=== PATIENT | male | born 1980 | race Caucasian/White ===

== ENCOUNTER 2024-06-28 11:36 | Inpatient (IN) | payer BC, OTHER ==
[2024-06-28] MEDS: Sodium Chloride 0.9% 10 ML Syringe FLUSH PRN (12:03)
[2024-06-28] MEDS: HYDROmorphone 1 MG/ML Syringe IVPUSH ONE (12:03)
[2024-06-28 12:04] LABS: BASOPHILS ABSOLUTE AUTO 0.1 K/mm3 (0.0-0.2); BASOPHILS PERCENT AUTO 0.9 % (0.0-1.0); EOSINOPHILS ABSOLUTE AUTO 0.2 K/mm3 (0.0-0.4); EOSINOPHILS PERCENT AUTO 2.3 % (0.0-6.0); HEMOGLOBIN 16.1 gm/dl (14.0-18.0); IMMATURE GRAN ABSOLUTE AUTO 0.04 K/mm3 (0.00-0.05); IMMATURE GRAN PERCENT AUTO 0.5 % (0.0-0.4); LYMPHOCYTES ABSOLUTE AUTO 1.6 K/mm3 (1.0-4.8); LYMPHOCYTES PERCENT AUTO 20.7 % (24.0-44.0); MEAN CORPUSCULAR HEMOGLOBIN 29.9 pg (28.0-32.0); MEAN CORPUSCULAR HGB CONC 34.3 g/dl (32.0-36.0); MEAN CORPUSCULAR VOLUME 87.2 fl (83.0-99.0); MONOCYTES ABSOLUTE AUTO 0.4 K/mm3 (0.0-0.8); MONOCYTES PERCENT AUTO 5.3 % (0.0-8.0); NEUTROPHILS ABSOLUTE AUTO 5.6 K/mm3 (1.8-7.7); NEUTROPHILS PERCENT AUTO 70.3 % (41.0-71.0); PLATELET COUNT,PLT 284 K/mm3 (150-400); RED BLOOD CELL COUNT 5.39 M/mm3 (4.52-5.90); WHITE BLOOD CELL COUNT,WBC 7.93 K/mm3 (3.9-11.3)
[2024-06-28 12:25] LABS: A/G RATIO 1.1 (1-2); ALANINE AMINOTRANSFERASE,ALT 28 U/L (16-63); ALKALINE PHOSPHATASE 61 U/L (46-116); ANION GAP 14.8 (5-15); ASPARTATE AMNIOTRANSFERASE,AST 14 U/L (15-37); BILIRUBIN TOTAL 0.5 mg/dL (0.2-1.0); BLOOD UREA NITROGEN,BUN 17 mg/dL (7-18); BUN/CREATININE RATIO 13.1 (14-18); CALCIUM 9.3 mg/dL (8.5-10.1); CARBON DIOXIDE,CO2 25 mEq/L (21-32); CHLORIDE,CL 105 mEq/L (98-107); CREATININE 1.3 mg/dL (0.7-1.3); ESTIMATED GFR 69 mL/min (>60); GLUCOSE RANDOM 112 mg/dL (70-99); POTASSIUM,K 3.8 mEq/L (3.5-5.1); PROTEIN TOTAL,TP 7.5 g/dl (6.4-8.2); SODIUM,NA 141 mEq/L (136-145)
[2024-06-28] MEDS: Diphtheria,Pertussis(Acell),Tetanus Vaccine 0.5 ML Syringe IM ONE (14:20)
[2024-06-28] MEDS ORDERED: Melatonin 3 MG Tab PO PRN (14:26)
[2024-06-28] MEDS ORDERED: Ondansetron 4 MG Tab.DIS PO PRN (14:26)
[2024-06-28] MEDS: Acetaminophen 325 MG Tab PO SCH (14:46)
[2024-06-28 15:01] LABS: INR 0.96; PROTHROMBIN TIME 10.2 SECONDS (9.7-12.0)
[2024-06-28 15:02] LABS: PTT,PARTIAL THROMBOPLSTIN TIME 21.9 SECONDS (21.7-31.4)
[2024-06-28] MEDS: oxyCODONE 5 MG Tab PO PRN (18:09)
[2024-06-28] MEDS: FLUTICASONE INH ONE (21:41)
[2024-06-28] MEDS: VILANTEROL INH ONE (21:41)
[2024-06-28] MEDS ORDERED: fentaNYL 250 MCG/5 ML SDV ONE (23:24)
[2024-06-28] MEDS ORDERED: Succinylcholine 200 MG/10 ML MDV ONE (23:24)
[2024-06-28] MEDS ORDERED: Midazolam 1 MG/ML 2 ML SDV ONE (23:24)
[2024-06-28] MEDS ORDERED: Propofol 200 MG/20 ML SDV ONE (23:24)
[2024-06-28] MEDS ORDERED: Ondansetron 4 MG/2 ML SDV ONE (23:24)
[2024-06-29] MEDS: Pantoprazole 40 MG Tab.CR PO SCH (05:55)
[2024-06-29] MEDS ORDERED: Pantoprazole 40 MG Tab.CR PO SCH (07:00)
[2024-06-29] MEDS: Enoxaparin 40 MG/0.4 ML Syringe SUBCUT SCH (08:20)
[2024-06-30 06:11] LABS: BASOPHILS ABSOLUTE AUTO 0.1 K/mm3 (0.0-0.2); BASOPHILS PERCENT AUTO 0.6 % (0.0-1.0); EOSINOPHILS ABSOLUTE AUTO 0.2 K/mm3 (0.0-0.4); EOSINOPHILS PERCENT AUTO 2.5 % (0.0-6.0); HEMATOCRIT 43.9 % (42.0-52.0); HEMOGLOBIN 15.1 gm/dl (14.0-18.0); IMMATURE GRAN ABSOLUTE AUTO 0.03 K/mm3 (0.00-0.05); IMMATURE GRAN PERCENT AUTO 0.3 % (0.0-0.4); LYMPHOCYTES ABSOLUTE AUTO 1.5 K/mm3 (1.0-4.8); LYMPHOCYTES PERCENT AUTO 15.8 % (24.0-44.0); MEAN CORPUSCULAR HEMOGLOBIN 29.7 pg (28.0-32.0); MEAN CORPUSCULAR HGB CONC 34.4 g/dl (32.0-36.0); MEAN CORPUSCULAR VOLUME 86.2 fl (83.0-99.0); MEAN PLATELET VOLUME 8.9 fl (9.4-12.4); MONOCYTES ABSOLUTE AUTO 0.8 K/mm3 (0.0-0.8); MONOCYTES PERCENT AUTO 8.4 % (0.0-8.0); NEUTROPHILS ABSOLUTE AUTO 6.8 K/mm3 (1.8-7.7); NEUTROPHILS PERCENT AUTO 72.4 % (41.0-71.0); PLATELET COUNT,PLT 230 K/mm3 (150-400); RED BLOOD CELL COUNT 5.09 M/mm3 (4.52-5.90); WHITE BLOOD CELL COUNT,WBC 9.43 K/mm3 (3.9-11.3)
[2024-06-30 06:52] LABS: BUN/CREATININE RATIO 9.1 (14-18); CALCIUM 9.1 mg/dL (8.5-10.1); CREATININE 1.1 mg/dL (0.7-1.3); EST CRCL DRUG DOSING (CG) 86.64 mL/min
[2024-06-30] MEDS: Docusate Sodium 100 MG Cap PO SCH (09:58)
[2024-06-30] MEDS ORDERED: Propofol 200 MG/20 ML SDV ONE ×3 (11:51→14:10)
[2024-06-30] MEDS ORDERED: Midazolam 1 MG/ML 2 ML SDV ONE (11:52)
[2024-06-30] MEDS ORDERED: fentaNYL 100 MCG/2 ML SDV ONE (11:53)
[2024-06-30] MEDS ORDERED: Ondansetron 4 MG/2 ML SDV ONE (12:01)
[2024-06-30] MEDS ORDERED: ceFAZolin 2 GM Vial ONE (13:00)
[2024-06-30] MEDS ORDERED: Lactated Ringers 1,000 ML ONE ×2 (13:11)
[2024-06-30] MEDS ORDERED: ePHEDrine 50 MG/ML SDV ONE (14:12)
[2024-06-30] MEDS: Morphine 8 MG, EPINEPHrine 0.3 MG, Cefuroxime 750 MG, Ketorolac 30 MG, Sodium Chloride ... PRN (14:34)
[2024-06-30] MEDS: Tranexamic Acid 1,000 MG/10 ML Vial ONE (14:40)
[2024-06-30] MEDS: Vancomycin 1 GM SDV ONE (14:40)
[2024-06-30] MEDS ORDERED: HYDROmorphone 0.5 MG/0.5 ML Syringe IVPUSH PRN (15:06)
[2024-06-30] MEDS ORDERED: Ondansetron 4 MG/2 ML SDV IVPUSH PRN (15:06)
[2024-06-30] MEDS ORDERED: fentaNYL 100 MCG/2 ML SDV IVPUSH PRN (15:06)
[2024-06-30] MEDS: oxyCODONE 5 MG Tab PO PRN (19:41)
[2024-06-30] MEDS: HYDROmorphone 0.5 MG/0.5 ML Syringe IVPUSH PRN (21:54)
[2024-07-01] MEDS: Acetaminophen 325 MG Tab PO PRN (02:17)
[2024-07-01] MEDS: Enoxaparin 40 MG/0.4 ML Syringe SUBCUT SCH (08:06)
[2024-07-01] MEDS: Lactated Ringers 1,000 ML IV ONE (08:29)
[2024-07-01 09:06] LABS: BASOPHILS ABSOLUTE AUTO 0.1 K/mm3 (0.0-0.2); BASOPHILS PERCENT AUTO 0.6 % (0.0-1.0); EOSINOPHILS ABSOLUTE AUTO 0.2 K/mm3 (0.0-0.4); EOSINOPHILS PERCENT AUTO 1.8 % (0.0-6.0); HEMATOCRIT 40.7 % (42.0-52.0); HEMOGLOBIN 13.9 gm/dl (14.0-18.0); IMMATURE GRAN ABSOLUTE AUTO 0.04 K/mm3 (0.00-0.05); IMMATURE GRAN PERCENT AUTO 0.4 % (0.0-0.4); LYMPHOCYTES ABSOLUTE AUTO 1.6 K/mm3 (1.0-4.8); LYMPHOCYTES PERCENT AUTO 15.1 % (24.0-44.0); MEAN CORPUSCULAR HGB CONC 34.2 g/dl (32.0-36.0); MEAN CORPUSCULAR VOLUME 87.7 fl (83.0-99.0); MEAN PLATELET VOLUME 9.3 fl (9.4-12.4); MONOCYTES PERCENT AUTO 9.1 % (0.0-8.0); PLATELET COUNT,PLT 229 K/mm3 (150-400); RED BLOOD CELL COUNT 4.64 M/mm3 (4.52-5.90); WHITE BLOOD CELL COUNT,WBC 10.89 K/mm3 (3.9-11.3)
[2024-07-01 09:34] LABS: A/G RATIO 0.8 (1-2); ALBUMIN 3.2 g/dl (3.4-5.0); ANION GAP 15.9 (5-15); BILIRUBIN TOTAL 1.3 mg/dL (0.2-1.0); BUN/CREATININE RATIO 10.9 (14-18); CALCIUM 8.8 mg/dL (8.5-10.1); CREATININE 1.1 mg/dL (0.7-1.3); EST CRCL DRUG DOSING (CG) 86.64 mL/min; MAGNESIUM 1.9 mg/dL (1.8-2.4); POTASSIUM,K 3.9 mEq/L (3.5-5.1)
[2024-07-02 04:46] LABS: BASOPHILS ABSOLUTE AUTO 0.1 K/mm3 (0.0-0.2); BASOPHILS PERCENT AUTO 0.6 % (0.0-1.0); EOSINOPHILS ABSOLUTE AUTO 0.2 K/mm3 (0.0-0.4); EOSINOPHILS PERCENT AUTO 2.1 % (0.0-6.0); HEMATOCRIT 38.1 % (42.0-52.0); HEMOGLOBIN 12.9 gm/dl (14.0-18.0); IMMATURE GRAN ABSOLUTE AUTO 0.06 K/mm3 (0.00-0.05); IMMATURE GRAN PERCENT AUTO 0.5 % (0.0-0.4); LYMPHOCYTES PERCENT AUTO 8.9 % (24.0-44.0); MEAN CORPUSCULAR HEMOGLOBIN 29.3 pg (28.0-32.0); MEAN CORPUSCULAR HGB CONC 33.9 g/dl (32.0-36.0); MEAN CORPUSCULAR VOLUME 86.6 fl (83.0-99.0); MEAN PLATELET VOLUME 9.3 fl (9.4-12.4); MONOCYTES ABSOLUTE AUTO 1.2 K/mm3 (0.0-0.8); MONOCYTES PERCENT AUTO 10.2 % (0.0-8.0); NEUTROPHILS ABSOLUTE AUTO 8.8 K/mm3 (1.8-7.7); NEUTROPHILS PERCENT AUTO 77.7 % (41.0-71.0); PLATELET COUNT,PLT 227 K/mm3 (150-400); WHITE BLOOD CELL COUNT,WBC 11.37 K/mm3 (3.9-11.3)
[2024-07-02 05:01] LABS: ANION GAP 12.7 (5-15); CALCIUM 8.9 mg/dL (8.5-10.1); EST CRCL DRUG DOSING (CG) 95.31 mL/min; POTASSIUM,K 3.7 mEq/L (3.5-5.1)
[2024-07-02] MEDS: Polyethylene Glycol 3350 Powder 17 GM Packet PO PRN (08:22)
[2024-07-02] MEDS: VILANTEROL INH SCH (09:59)
[2024-07-02] MEDS: FLUTICASONE INH SCH (09:59)
== END 2024-07-02 12:00 | disposition home or self-care (01) | DRG 522 ==
LOC: JD.ED 11:36 → JD.MS 13:54
PROVIDERS: ADMIT Family Medicine; ATTEND Student in an Organized Health Care Education/Training Program
PROC: 3E0234Z Introduction of Serum, Toxoid and Vaccine into Muscle, Percutaneous Approach (ICD-10-PCS; 2024-06-28)
PROC: 0SRB0JZ Replacement of Left Hip Joint with Synthetic Substitute, Open Approach (ICD-10-PCS; principal; 2024-06-30 13:00)
DX: S72.002A Fracture of unspecified part of neck of left femur, initial encounter for closed fracture (principal); J45.909 Unspecified asthma, uncomplicated; K21.9 Gastro-esophageal reflux disease without esophagitis; K20.0 Eosinophilic esophagitis; R50.82 Postprocedural fever; I95.81 Postprocedural hypotension; Z79.899 Other long term (current) drug therapy; Z86.16 Personal history of COVID-19; Z23 Encounter for immunization; W13.2XXA Fall from, out of or through roof, initial encounter
CPT/HCPCS: 01214; 12001; 36415; 71045; 71045-26; 72170; 72170-26; 73501-26-LT; 73501-LT; 73552-26-LT; 73552-LT; 73700-26-LT; 73700-LT; 80048; 80053; 82947; 83735; 85025; 85610; 85730; 86850; 86900; 86901; 87040; 87641; 90715; 94640; 94760; 96374; 97110-GP; 97116-GP; 97161-GP; 97530-GP; 99284; 99285-25; A9270-GY; C1713; C1776; J0171; J0330; J0690; J0697; J1171; J1650; J1885; J2250; J2272; J2405; J2704; J3010; J3490; J7120